=== PATIENT | female | born 1985 | race Asian ===

== ENCOUNTER 2022-08-22 14:13 | Day surgery (SDC) | payer OTHER | END 2022-08-22 17:30 | disposition home or self-care (01) | LOC: CSHLD/OP 14:13 | PROVIDERS: ATTEND Family Medicine | DX: O99.891 Other specified diseases and conditions complicating pregnancy (principal); Z36.83 Encounter for fetal screening for congenital cardiac abnormalities; Z3A.35 35 weeks gestation of pregnancy | CPT/HCPCS: 59025 ==

== ENCOUNTER 2022-08-23 08:03 | Day surgery (SDC) | payer OTHER | END 2022-08-23 10:40 | disposition home health service (06) | LOC: CSHLD/OP 08:03 | PROVIDERS: ATTEND Family Medicine | DX: O36.5990 Maternal care for other known or suspected poor fetal growth, unspecified trimester, not applicable or unspecified (principal); Z3A.00 Weeks of gestation of pregnancy not specified | CPT/HCPCS: 76815; 76819 ==

== ENCOUNTER 2022-08-27 07:30 | Inpatient (IN) | payer OTHER ==
[2022-08-26 12:41] LABS: #Basophils 0.1 10x3/uL (0.0-0.2); #Eosinphils 0.1 10x3/uL (0.0-0.5); #Monocytes 0.8 10x3/uL (0.0-1.1); #Neutrophils 7.1 10x3/uL (1.5-8.4); %Basophils 0.7 % (0.0-2.0); %Eosinophils 1.1 % (0.0-6.0); %Lymphocytes 21.2 % (18.0-47.0); %Monocytes 7.7 % (0.0-10.0); %Neutrophils 67.4 % (40.0-75.0); Mean Corpuscular Hemoglobin 29.7 pg (27.0-33.0); Mean Corpuscular Volume 87.4 fl (81.6-98.3); Mean Platelet Volume 11.1 fl (7.4-10.4); Platelet Count 285 10x3/uL (150-450); RBC Distribution Width 13.6 % (11.5-14.5); Red Blood Cell (RBC) Count 4.04 10x6/uL (3.90-5.03); White Blood Cell (WBC) Count 10.5 10x3/uL (3.5-10.5)
[2022-08-26 13:07] LABS: Syphilis Antibody Nonreactive (Nonreactive); Syphilis Antibody Index 0.06 S/CO (<1.00 Non-Reactive)
[2022-08-26 13:09] LABS: HBSAg Index 0.22 S/CO (0-0.99); Hep B Surf Ag Non-Reactive S/CO (NonReactive)
[2022-08-26 13:13] LABS: SARS-CoV-2 NAA Rapid Test Not Detected (NotDetected)
[2022-08-27 10:45] VITALS: BMI 31.6
[2022-08-27] MEDS ORDERED: Ondansetron PF 4 MG/2 ML Vial IVP PRN ×4 (10:54→15:19)
[2022-08-27] MEDS ORDERED: CEFAZOLIN 2 GM in Sodium Chloride 0.9% 100 ML IVPB SCH (10:54)
[2022-08-27] MEDS ORDERED: hydrALAZINE 20 MG/ML VIAL SLOW IVP PRN ×2 (10:54→15:19)
[2022-08-27] MEDS ORDERED: Promethazine HCl 25 MG/ML VIAL IM PRN ×4 (10:54→15:19)
[2022-08-27] MEDS ORDERED: Bicitra 30 ML UDCUP PO PRN (10:54)
[2022-08-27] MEDS ORDERED: Famotidine/PF 20 mg/2ml Vial SLOW IVP PRN (10:54)
[2022-08-27] MEDS ORDERED: Lactated Ringer's 1,000 ML IV SCH (10:54)
[2022-08-27] MEDS ORDERED: Naloxone HCl 0.4 mg/ml Vial IVP PRN ×4 (11:19→11:21)
[2022-08-27] MEDS ORDERED: Moisturizing Cream (Eucerin) 113 GM JAR TOP PRN ×2 (11:19→11:21)
[2022-08-27] MEDS ORDERED: ePHEDrine Sulfate 50 MG/10 ML VIAL SLOW IVP PRN (11:19)
[2022-08-27] MEDS ORDERED: diphenhydrAMINE 50 MG/ML VIAL IVP PRN ×2 (11:19→11:21)
[2022-08-27] MEDS ORDERED: Lactated Ringer's 500 ML IV PRN (11:19)
[2022-08-27] MEDS ORDERED: Acetaminophen 325 MG TAB PO PRN (11:19)
[2022-08-27] MEDS ORDERED: Meperidine HCl/PF 25 MG/ML VIAL SLOW IVP PRN (11:21)
[2022-08-27] MEDS ORDERED: Fentanyl 100 MCG/2 ML VIAL SLOW IVP PRN (11:21)
[2022-08-27] MEDS ORDERED: Ondansetron HCl/PF 4 MG/2 ML Vial IVP PRN (11:21)
[2022-08-27] MEDS ORDERED: L&D-Morphine 4 MG/ML VIAL SLOW IVP PRN (11:21)
[2022-08-27] MEDS ORDERED: Naloxone HCl 0.4 mg/ml Vial IV PRN (11:21)
[2022-08-27] MEDS ORDERED: Promethazine HCl 25 MG SUPP PR PRN (11:21)
[2022-08-27] MEDS ORDERED: Ketorolac Tromethamine 30 MG/ML VIAL IVP PRN (11:21)
[2022-08-27] MEDS ORDERED: Fentanyl 2 mcg/Bupivacaine 0.1% Cassette 100 ML EPIDURAL SCH (11:30)
[2022-08-27] MEDS ORDERED: Ketorolac Tromethamine 30 MG/ML VIAL IVP SCH (11:30)
[2022-08-27] MEDS ORDERED: Communication Order-Pharmacy FS SCH ×2 (11:30)
[2022-08-27] MEDS ORDERED: Ondansetron PF 4 MG/2 ML Vial ONE (11:53)
[2022-08-27] MEDS ORDERED: PHENYLEPHRINE-NS 100 MCG/ML 10 ML SYRINGE ONE (11:53)
[2022-08-27] MEDS ORDERED: Dexamethasone 4 mg/ml Vial ONE (11:53)
[2022-08-27] MEDS ORDERED: Oxytocin 10 UNITS/ML VIAL ONE (11:53)
[2022-08-27] MEDS ORDERED: Morphine PF 10 MG/10 ML VIAL ONE (11:53)
[2022-08-27] MEDS ORDERED: Simethicone Chewable 80 MG TAB PO PRN (15:19)
[2022-08-27] MEDS ORDERED: Boostrix 0.5 ML (Tdap) VIAL (>/=7 yrs of age) IM ONE (15:19)
[2022-08-27] MEDS ORDERED: NS w/ Oxytocin 30 units 500 ML IV SCH (15:19)
[2022-08-27] MEDS ORDERED: Meperidine HCl/PF 25 MG/ML VIAL IM PRN (15:19)
[2022-08-27] MEDS ORDERED: diphenhydrAMINE 25 MG CAP PO PRN (15:19)
[2022-08-27] MEDS ORDERED: Bisacodyl 10 MG SUPP PR PRN (15:19)
[2022-08-27] MEDS ORDERED: HYDROcodone/Acetaminophen 5/325 mg Tablet PO PRN (15:19)
[2022-08-27] MEDS ORDERED: Lanolin Ointment 7 GM TUBE TOP PRN (15:19)
[2022-08-27] MEDS: Ketorolac Tromethamine 30 MG/ML VIAL IVP SCH (19:31)
[2022-08-27] MEDS: Docusate 100 MG CAP PO SCH (20:52)
[2022-08-27] MEDS: Ferrous Sulfate 325 MG TAB PO SCH (20:52)
[2022-08-28] MEDS: Ketorolac Tromethamine 30 MG/ML VIAL IVP SCH ×2 (01:47→08:39)
[2022-08-28 04:34] LABS: Hemoglobin 9.9 g/dL (12.0-15.5); Mean Corpuscular HGB CONC 33.9 g/dL (32.0-36.0); Mean Corpuscular Hemoglobin 30.1 pg (27.0-33.0); Mean Corpuscular Volume 88.8 fl (81.6-98.3); Mean Platelet Volume 11.4 fl (7.4-10.4); Platelet Count 243 10x3/uL (150-450); RBC Distribution Width 13.6 % (11.5-14.5); Red Blood Cell (RBC) Count 3.29 10x6/uL (3.90-5.03); White Blood Cell (WBC) Count 14.1 10x3/uL (3.5-10.5)
[2022-08-28] MEDS: Ferrous Sulfate 325 MG TAB PO SCH ×2 (08:39→22:15)
[2022-08-28] MEDS: Docusate 100 MG CAP PO SCH ×2 (08:39→22:15)
[2022-08-28] MEDS: Prenatal Vitamin 1 TAB PO SCH (08:39)
[2022-08-28] MEDS: Ibuprofen 800 MG TAB PO SCH ×2 (13:22→22:16)
[2022-08-29] MEDS: HYDROcodone/Acetaminophen 5/325 mg Tablet PO PRN ×2 (00:28→13:19)
[2022-08-29] MEDS: Ibuprofen 800 MG TAB PO SCH ×3 (05:33→22:09)
[2022-08-29] MEDS: Docusate 100 MG CAP PO SCH ×2 (09:36→22:09)
[2022-08-29] MEDS: Ferrous Sulfate 325 MG TAB PO SCH ×2 (09:37→22:08)
[2022-08-29] MEDS: Prenatal Vitamin 1 TAB PO SCH (09:37)
[2022-08-30] MEDS: Ibuprofen 800 MG TAB PO SCH (04:57)
[2022-08-30 07:52] VITALS: BP 113/67; TEMP 98.1
[2022-08-30] MEDS: Ferrous Sulfate 325 MG TAB PO SCH (09:08)
[2022-08-30] MEDS: Prenatal Vitamin 1 TAB PO SCH (09:08)
[2022-08-30] MEDS: Docusate 100 MG CAP PO SCH (09:08)
== END 2022-08-30 10:55 | disposition home or self-care (01) | DRG 788 ==
LOC: CSHLD 10:11 → CSHPP 15:30
PROVIDERS: ADMIT Family Medicine; ATTEND Family Medicine
PROC: 10D00Z1 Extraction of Products of Conception, Low, Open Approach (ICD-10-PCS; principal; 2022-08-27)
DX: O34.211 Maternal care for low transverse scar from previous cesarean delivery (principal); Z37.0 Single live birth; Z3A.37 37 weeks gestation of pregnancy; O36.5930 Maternal care for other known or suspected poor fetal growth, third trimester, not applicable or unspecified; Z20.822 Contact with and (suspected) exposure to COVID-19
CPT/HCPCS: 36415; 51702; 85025; 85027; 86780; 86850; 86900; 86901; 87340; 88307; J1100; J1200; J1885; J2274; J2405; J2590; J3490; S0028; U0002